=== PATIENT | male | born 1955 | race Caucasian/White ===

== ENCOUNTER 2017-04-18 19:07 | Inpatient (IN) | payer BC, OTHER ==
[~2017-04-18] VITALS: Ht 175.3 cm; Wt 97.5 kg
--- NOTE | ~2017-04-18 | HC ---
[facility] [place] [address] CONSULTATION Name: ABI BETANCOURT Room #: 312-P [facility] IN M.R.#: [id number] Admission: 04/18/17 Attend Phys: Jorge Luis Fong MD Discharge: 04/20/17 Date of : 55 Report #: [id number] THIS REPORT FOR: //name// CC: Joseluis Freitas MD REASON FOR CONSULTATION: The patient is a 61-year-old male with enlarged spleen and abnormal liver function studies. HISTORY OF PRESENT ILLNESS: History is obtained from the patient Unfortunately, he cannot give a lot of detail. In the computer system, there is a bone marrow done in 2007, which was a dry tap, but at that time elevated bilirubin was the one indicates for the bone marrow. Dr. Freitas left a brief note on the chart indicating that this patient is well known to her from outpatient followup. He has a history of thrombocytopenic purpura, vitiligo, hypothyroidism, and iron overload with negative HFE gene testing. 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 Platelets have remained over 30,000 in the past, previous bone marrow biopsy was without dysplasia and aspirin has been held as platelets have been under 50,000, platelets are now 20,000. She indicates that if he has lower drop in platelets, he may require treatment. The patient reports to me that he had developed abdominal pain which was diffuse over his abdomen yesterday, was not severe, but the pain persisted throughout the day and it was not any better in the evening, he presented to the emergency room. Upon presentation, he had an abdominal CT, which revealed marked splenomegaly and some small bowel wall thickening in the second and third portion of the duodenum. Differentials include intramural hemorrhage, edema or infiltration: Major vessels of the hands are speaking against ischemia. Gallbladder was normal. Liver was normal per CT. He also had an ultrasound of the abdomen, which revealed splenomegaly. The common bile duct was 2 cm. The patient reports the abdominal pain has completely resolved. He is not having nausea, vomiting, hematemesis. Bowel habits have been regular. He reports he did have a colonoscopy several years ago and he reports it was negative. The patient also reports that he had previous workup at another facility including bone marrow biopsy, liver biopsy as well as multiple scans. I do not see those records at this point in time. There is no history of liver disease. There is no family history of liver [address] [address] CONSULTATION Name: ABI BETANCOURT Room #: 312-P [facility] IN M.R.#: [id number] Admission: 04/18/17 Attend Phys: Jorge Luis Fong MD Discharge: 04/20/17 Date of : 55 Report #: [id number] disease. He has never consumed much alcohol. He and his are for 31 years. He has never donated blood or received blood transfusion nor had tattoos. In addition, the patient reports that if he gets a flu or something, his urine will turn dark. Again, he is not having abdominal pain or biliary tract disease. PAST MEDICAL HISTORY: Diabetes, hypothyroidism and vitiligo which has been a long-term problem. ALLERGIES: PENICILLIN. MEDICATIONS: Usual home medicines are levothyroxine 100 mcg daily, meloxicam 15 mg daily, metformin 500 mg daily, Singulair 10 mg at bedtime, tamsulosin 0.8 mg daily. FAMILY HISTORY: No family history of colon cancer or family history of liver disease. SOCIAL HISTORY: He is . He quit smoking many years ago. He may be has 2 beers per week at [place]. He business. REVIEW OF SYSTEMS: GENERAL: No change in weight, fever, chills. CENTRAL NERVOUS SYSTEM: No focal weakness, numbness, loss of consciousness, seizures or stroke. ENT: No change in vision or hearing or sores in the mouth. PULMONARY: No cough, pneumonia or tuberculosis. CARDIOVASCULAR: No chest pain, chest tightness or palpitations. GASTROINTESTINAL: No nausea, vomiting, hematemesis. His abdominal pain has resolved. Bowel habits are regular. Colonoscopy in the past several years ago was negative per his report. GENITOURINARY: He takes Flomax. No history of kidney stones. MUSCULOSKELETAL: He has had chronic back pain and he gets epidural injections from time to time. SKIN: Vitiligo. ENDOCRINE: He has diabetes and hypothyroidism as well as vitiligo. PSYCHIATRIC: No depression, anxiety or bipolar illness. HEMATOLOGIC: Thrombocytopenia and enlarged spleen. No cancers. PHYSICAL EXAMINATION: GENERAL: The patient is a well-developed, well-nourished pleasant male who is awake, alert and oriented, in no acute distress. HEENT: Anicteric. Pupils equal and round. Oropharynx clear. NECK: Supple. [facility] [address] [place] [address] CONSULTATION Name: ABI BETANCOURT Room #: 312-P DIS IN MMavis.#: [id number] Admission: 04/18/17 Attend Phys: Jorge Luis Fong MD Discharge: 04/20/17 Date of : 55 Report #: [id number] CHEST: Clear. HEART: Regular rate and rhythm, normal S1, normal S2. ABDOMEN: Obese, normal bowel sounds, soft, nontender, without hepatomegaly. Spleen is palpable. RECTAL: Not done. EXTREMITIES: Without cyanosis, clubbing, edema. NEUROLOGIC: Oriented to person, place, and time, moves all 4 extremities well. SKIN: Extensive vitiligo. I do not see spider nevi. LABORATORY DATA: White count of 7, hemoglobin of 16.8, platelet count of 20,000. Electrolytes are normal. Blood sugar 176. Bilirubin is 3 with direct of 0.4. AST 75, ALT of 96, alkaline phosphatase of 226, albumin of 3.0. ASSESSMENT: 1. Abnormal liver function studies. There is a mention of history of fatty over disease. He has had a liver biopsy done and I do not have those results. He reports dark urine with flu like illness raising the possibility of Gilbert's. Hemolysis may be a factor as well. 2. Splenomegaly with thrombocytopenic purpura, question idiopathic thrombocytopenic purpura. 3. Diabetes. 4. Vitiligo. 5. Hypothyroidism. 6. Abdominal pain, resolved. 7. Abnormal CT, spleen and duodenum. PLAN: 1. We would like to see previous records with regards to his liver biopsy. 2. No intervention planned at this time due to his low platelets and resolution of abdominal pain. 3. Consider upper endoscopy to evaluate the duodenum. The thickening may be due to edema. In view of his low platelets, hemorrhage may be another consideration, infiltrative process is possible, but probably less likely. <ELECTRONICALLY SIGNED> By: Joby Naylor MD 04/22/17 1523 1639 2049 Joby Naylor MD /nt
--- NOTE | ~2017-04-18 | EKG ---
[address] [place] [address] ELECTROCARDIOGRAM REPORT Name: ABI BETANCOURT Room #: 312-P ADM IN M.R.#: [id number] Admission: 04/18/17 Attend Phys: Jorge Luis Fong MD Discharge: Date of : 55 Report #: [id number] THIS REPORT FOR: //name// [facility] ED Test Date: 2017-04-18 Test Time: 22:05:14 Pat Name: ABI BETANCOURT Department: Room: [facility] Gender: M Materials Tech: La BECERRA : 1955 Requested By: Maikol Prabhakar Order Number: [id number] MD: Aaron Marlow Measurements Intervals [place] Rate: 84 P: 30 CO: 171 QRS: 9 QRSD: 99 T: 30 QT: 367 QTc: 434 Interpretive Statements Sinus rhythm Baseline wander in lead(s) I,II,aVR No previous ECG available for comparison Electronically Signed On 04-19-2017 10:52:01 CDT by Aaron Marlow [email or web address] <ELECTRONICALLY SIGNED> By: Aaron Marlow MD, [facility] 04/19/17 1052 04 04 Aaron Marlow MD, [facility] /EPI
[2017-04-18 19:18] VITALS: BP 140/90
[2017-04-18] MEDS ORDERED: LEVOTHYROXINE 0.1 MG PO (19:23)
[2017-04-18] MEDS ORDERED: MOBIC15 MG PO (19:23)
[2017-04-18] MEDS ORDERED: GLUCOPHAGE XR500 MG PO (19:23)
[2017-04-18] MEDS ORDERED: FLOMAX0.4 MG PO (19:24)
[2017-04-18] MEDS ORDERED: SINGULAIR 10 MG10 M1 PO (19:24)
[2017-04-18 20:17] LABS: HEMOGLOBIN 16.8 gm/dL (14.0-18.0); MCHC 33.6 g/dL (28.0-37.0)
[2017-04-18 20:18] LABS: HEMATOCRIT 49.9 % (42.0-52.0); MCH 30.5 pg (26.0-34.0); MCV 90.9 fL (80.0-100.0); RBC 5.5 mil/uL (4.50-6.00); RDW 16.5 % (10.5-14.5)
[2017-04-18 20:20] LABS: ANION GAP 8 mmol/L (7-16); BUN 18 mg/dL (7-18); CHLORIDE 106 mmol/L (98-107); CO2 27 mmol/L (21-32); CREATININE 0.9 mg/dL (0.7-1.3); GLUCOSE 176 mg/dL (74-106); POTASSIUM 4.3 mmol/L (3.5-5.1); SODIUM 141 mmol/L (136-145)
[2017-04-18 20:29] LABS: ALKALINE PHOSPHATASE 226 U/L (46-116); SGOT 75 U/L (15-37); SGPT 96 U/L (30-65); TOTAL PROTEIN 6.8 g/dL (6.4-8.2); TROPONIN-I < 0.04 ng/mL (<0.04-0.07)
[2017-04-18 21:26] LABS: URINE BILIRUBIN NEGATIVE (Negative); URINE BLOOD NEGATIVE (Negative); URINE COLOR YELLOW; URINE GLUCOSE-RANDOM* TRACE (Negative); URINE KETONES NEGATIVE (Negative); URINE LEUKOCYTES-REFLEX NEGATIVE (Negative); URINE PROTEIN (DIPSTICK) 1+ (Negative); URINE SPECIFIC GRAVITY 1.015 (1.003-1.035)
[2017-04-18 21:37] LABS: SQUAMOUS 0-3 Few /LPF (0-3)
[2017-04-18 21:38] LABS: HYALINE CASTS 0-3 Few /LPF (None Seen); URINE WBC-REFLEX 0-5 Rare /HPF (0-5)
[2017-04-18 21:39] LABS: CRYSTALS None Seen /LPF (None Seen); URINE RBC 0-2 Rare /HPF (0-2)
[2017-04-19 00:09] LABS: DIRECT BILIRUBIN 0.4 mg/dL (<0.1-0.3)
[2017-04-19 01:01] VITALS: BP 128/93
[2017-04-19 03:25] VITALS: BP 146/76
[2017-04-19 08:00] VITALS: BP 125/58
[2017-04-19 16:00] VITALS: BP 130/98
[2017-04-19 16:51] LABS: ABSOLUTE RETIC COUNT 0.0861 10^6/uL; OBSERVED RETIC COUNT 1.51 % (0.6-2.6)
[2017-04-19 18:52] VITALS: BP 111/44
[2017-04-20 03:49] VITALS: BP 155/77
[2017-04-20 08:25] VITALS: BP 145/77
[2017-04-20 08:48] LABS: HEMATOCRIT 42.8 % (42.0-52.0); MCH 30.7 pg (26.0-34.0); MCV 90.4 fL (80.0-100.0); RBC 4.73 mil/uL (4.50-6.00); RDW 16.4 % (10.5-14.5); WBC 3.9 thou/uL (4.0-11.0)
[2017-04-20 08:49] LABS: HEMOGLOBIN 14.5 gm/dL (14.0-18.0)
[2017-04-20 08:50] LABS: MANUAL DIFF YES
[2017-04-20 09:13] LABS: ABSOLUTE NEUTROPHILS 3.2 thou/uL (1.4-8.2); TOTAL CELL COUNT 100
[2017-04-20 09:14] LABS: PLATELET ESTIMATE MARKEDLY DECREASED; POLYCHROMASIA SLIGHT
[2017-04-20 09:17] LABS: PLATELET COUNT 18 thou/uL (150-400)
[2017-04-20 09:27] VITALS: BP 145/77
== END 2017-04-20 09:48 | disposition home or self-care (01) | DRG 815 ==
LOC: ER 19:07 → 3N 22:33 → EROBS 22:33 → 3N 04-19 01:03
PROVIDERS: Emergency Medicine; Internal Medicine Hematology & Oncology; Specialist
DX: R16.1 Splenomegaly, not elsewhere classified (principal); J98.11 Atelectasis; R10.9 Unspecified abdominal pain; D69.6 Thrombocytopenia, unspecified; E03.9 Hypothyroidism, unspecified; K76.0 Fatty (change of) liver, not elsewhere classified; M54.9 Dorsalgia, unspecified; R79.89 Other specified abnormal findings of blood chemistry; G89.29 Other chronic pain; E11.9 Type 2 diabetes mellitus without complications; J30.2 Other seasonal allergic rhinitis; E05.90 Thyrotoxicosis, unspecified without thyrotoxic crisis or storm; Z79.899 Other long term (current) drug therapy; Z88.0 Allergy status to penicillin; Z87.891 Personal history of nicotine dependence
CPT/HCPCS: 10094

== ENCOUNTER 2017-04-24 19:59 | Inpatient (IN) | payer BC, OTHER ==
[~2017-04-24] VITALS: Ht 175.3 cm; Wt 101.6 kg
--- NOTE | ~2017-04-24 | DSS ---
[facility] [place] [address] SHORT STAY SUMMARY Name: ABI BETANCOURT Room #: 245-P [facility] IN M.R.#: [id number] Admission: 04/24/17 Attend Phys: Jorge Luis Fong MD Discharge: 04/26/17 Date of : 55 Report #: [id number] THIS REPORT FOR: //name// CC: Carly Freitas DATE OF SERVICE: 04/26/2017 The patient is a 61-year-old male who was admitted on the late evening of with mental status changes. His reports that he was somewhat fatigued during the day. He said he did not feel well, so laid down and as the evening progressed, he became more disoriented. He had been hospitalized recently and then discharged and did well at home for a separate problem. He had no prior mental status problems. He does have a history of thrombocytopenia, which has been followed by Dr. Katerina Freitas at [facility]. They had given him IV steroids recently for that. He had recent platelet count that was below 50. He was admitted and initially evaluated for possible stroke or bleed. CT head was negative for stroke or bleed. CT angiogram was also negative for acute infarct. The patient was admitted overnight. Consultation with Neurology was undertaken. An MRI was performed the following morning, which was also negative for stroke. At that time, Neurology was concerned that steroids had caused this altered mental status and encephalopathy. We also consulted Infectious Disease ____ underlying infectious source. A CT of the abdomen was done which did show some cirrhosis, which apparently has been present in the past. The patient had been worked up by ____ had ultrasound over a year ago. The reports there was a biopsy of the liver done, although I do not have a copy of that. The patient had not been undergoing a treatment for that and had not had any prior encephalopathy or ammonia level issues before. In response to that abnormal scan, ammonia level was done which was elevated at 67. At that time, we initiated plans for treatment with lactulose. The patient remained markedly confused. He is able to respond to questions, but he is little agitated and confused. He was given Haldol primarily for agitation. He did receive ____ 2 doses of Ativan due to his severe agitation prior to getting his MRI to see if he could calm down for that. His mental status did not really change subsequent to that. The family had requested transfer to [facility] for further evaluation of his encephalopathy and cirrhosis. The patient did have a total bilirubin of 2.7. His white count was slightly low at 3.7. His hemoglobin was stable at 13.7. His platelet count was 26,000. His INR and PT were within range. PT was 17.3. Sodium 149, potassium 4.8. Remainder of the electrolytes within normal range. Neurological status essentially did not change during his stay. Arrangements were made for transfer to [facility] for further evaluation of his encephalopathy and cirrhosis and elevated ammonia level. The patient will be transferred under the care of the hospitalist at [facility]. He will be transferred to the medical surgical floor. He had been [address] [address] SHORT STAY SUMMARY Name: ABI BETANCOURT Room #: 245-P DIS IN M.R.#: [id number] Admission: 04/24/17 Attend Phys: Jorge Luis Fong MD Discharge: 04/26/17 Date of : 55 Report #: [id number] in the ICU in our facility ____ agitation in the beginning stage of this hospitalization to make sure that there was not any danger to self and no progression of the disease. He does remain medically stable at this time for transfer and I do not believe he has been intensive care at this time. I have discussed with the family and they are in agreement with the transfer. The patient will be transferred via ambulance to [facility] this evening. By: 1907 54 Jorge Luis Fong MD /nt
--- NOTE | ~2017-04-24 | HC ---
[facility] [place] [address] CONSULTATION Name: ABI BETANCOURT Room #: 245-P ADM IN M.R.#: [id number] Admission: 04/24/17 Attend Phys: Jorge Luis Fong MD Discharge: Date of : 55 Report #: [id number] THIS REPORT FOR: //name// CC: Carly Freitas REASON FOR CONSULTATION: I was asked to evaluate concerning encephalopathy. HISTORY OF PRESENT ILLNESS: The patient is a 61-year-old who had been followed by GI service and hematology due to profound thrombocytopenia. Unclear if this was due to sequestration or ITP. Treated last week with dexamethasone. Yesterday noted confusional state, some dizziness sensation, no fever, chills, or sweats. No witnessed seizure activity. He has had no cough, sputum, nausea, vomiting, diarrhea, dysuria, or frequency. Due to his encephalopathy, he was admitted to the emergency room. Hemodynamically, he has been stable. He has episodes of confusion trying to get out of bed and then will become more lethargic. There has been no travel. No head injury is noted. He has been on no recent antibiotics. Question is whether he has got underlying cirrhosis with splenomegaly and thrombocytopenia on this regard versus ITP. He has had no previous acute renal failure or evidence of encephalopathy prior to this. During his last hospitalization, he did have some small-bowel wall thickening in the second and third portion of the duodenum, but this has subsequently resolved. PAST MEDICAL HISTORY: Diabetes, hypothyroidism, and vitiligo. ALLERGIES: To PENICILLIN. MEDICATIONS: Levothyroxine, Meloxicam, metformin, Singulair, tamsulosin, and dexamethasone. FAMILY HISTORY: Noncontributory. SOCIAL HISTORY: , past smoker, few beers per week. No HIV risk factors noted. REVIEW OF SYSTEMS: Noted above. PHYSICAL EXAMINATION: VITAL SIGNS: Afebrile, hemodynamically stable. GENERAL: He was lethargic, but would answer yes or no type questions. He was trying to lay on his left side, but would roll back over on his back. NECK: Supple. EYES: Unremarkable. MOUTH: Unremarkable. SKIN: Few petechiae. [facility] [address] [place] [address] CONSULTATION Name: ABI BETANCOURT Room #: 245-P [facility] IN .R.#: [id number] Admission: 04/24/17 Attend Phys: Jorge Luis Fong MD Discharge: Date of : 55 Report #: [id number] LYMPH: Unremarkable. CHEST: Clear. HEART: Regular with no appreciable murmur, gallop, or rub. ABDOMEN: Soft, nontender, no hepatosplenomegaly or mass. EXTREMITIES: Unremarkable. NEUROLOGIC: Nonfocal. LABORATORY STUDIES: Sodium 137, potassium 5.3, bicarbonate 24, and creatinine 1.2. Drug screen negative. Bilirubin 3, AST 75, and alk phos 226 during his previous admission. Liver function tests have not been repeated. Hemoglobin 16, WBCs 9.9, and platelet count was 27,000. Urinalysis, moderate rbc's, otherwise remarkable for 2+ glucose and 2+ blood. CT scan of the brain including CT angiogram, normal perfusion. Chest x-ray, basilar atelectasis. IMPRESSION: A 61-year-old with altered mental status and encephalopathy, most likely toxic metabolic. He still cannot rule out infection considering his steroids. Ischemia seems less likely with his previous scans being negative, although we will await his MRI scan. He has splenomegaly and significant thrombocytopenia. As of yet indeterminate whether this is sequestration or idiopathic thrombocytopenic purpura. Does not have renal failure to suggest thrombotic thrombocytopenic purpura. RECOMMENDATION: I did review his previous ultrasound in 2007 and he had splenomegaly at that time. We will plan to image his brain with MRI scan. Try to increase his platelet count and push for CSF examination. In the meantime, we will begin empiric antimicrobial therapy. He will be moved to the intensive care unit. We would check his liver function test as well as HIV testing. We will need further outpatient records to determine any further workup. I have discussed with nursing staff, neurology and the patient's family. <ELECTRONICALLY SIGNED> By: Maikol Yao MD 04/25/17 1212 1029 1203 Maikol Yao MD /nt
--- NOTE | ~2017-04-24 | EEG ---
[facility] [place] [address] ELECTROENCEPHALOGRAM Name: ABI BETANCOURT Room #: 245-P [facility] IN M.R.#: [id number] Admission: 04/24/17 Attend Phys: Jorge Luis Fong MD Discharge: 04/26/17 Date of : 55 Report #: [id number] THIS REPORT FOR: //name// CC: Carly Freitas DATE OF EE04/25/2017 This patient is being evaluated for altered mental status. EEG was done by placing the electrodes by standard 10-20 system of electrode placement. Both referential and sequential montages were used for recording. This patient's EEG is very disorganized and poorly formed. Background activity in this patient's EEG appeared to be about 5 Hz and 15 microvolts. It is difficult to tell this background for sure. EEG is slow and is very difficult to tell when the patient is awake or asleep. Photic stimulation is unremarkable. IMPRESSION: This is an abnormal EEG because it is disorganized and poorly formed. That is a nonspecific abnormality, which can occur with encephalopathy, effect of psychotropic medication, dementia, etc. Clinical correlation and further workup is recommended in this patient to evaluate this patient for this abnormal EEG. Thank you very much for this referral. <ELECTRONICALLY SIGNED> By: Johnnie Daniels MD 04/27/17 1941 1910 1924 MD toby Lanier
--- NOTE | ~2017-04-24 | EKG ---
[address] [address] ELECTROCARDIOGRAM REPORT Name: SERAFINABI Room #: 245-P ADM IN M.R.#: [id number] Admission: 04/24/17 Attend Phys: Jorge Luis Fong MD Discharge: Date of : 55 Report #: [id number] THIS REPORT FOR: //name// [facility] ED Test Date: 2017-04-24 Test Time: 19:59:41 Pat Name: ABI BETANCOURT Department: Room: [facility] Gender: M Time Study Analyst: [id number] : 1955 Requested By: Nellie Lombardi Order Number: [id number] MD: Dany Page Measurements Intervals [place] Rate: 117 P: 50 [place]: 137 QRS: 44 QRSD: 98 T: 21 QT: 337 QTc: 471 Interpretive Statements Sinus tachycardia Compared to ECG 04/18/2017 22:05:14 Sinus rhythm no longer present Electronically Signed On 04-25-2017 16:43:11 CDT by Dany Page [email or web address] <ELECTRONICALLY SIGNED> By: Dany Page MD 08/1642 58 58 Dany Page MD /VILLA
[~2017-04-24 19:59] MED LIST: FLOMAX0.4 MG PO; GLUCOPHAGE XR500 MG PO; LEVOTHYROXINE 0.1 MG PO; MOBIC15 MG PO; SINGULAIR 10 MG10 M1 PO
[2017-04-24 20:01] VITALS: BP 159/95
[2017-04-24 20:19] LABS: HEMOGLOBIN 16.1 gm/dL (14.0-18.0); WBC 9.9 thou/uL (4.0-11.0)
[2017-04-24 20:21] LABS: HEMATOCRIT 46.2 % (42.0-52.0); MCH 31.3 pg (26.0-34.0); MCHC 34.9 g/dL (28.0-37.0); MCV 89.6 fL (80.0-100.0); RBC 5.15 mil/uL (4.50-6.00); RDW 16.4 % (10.5-14.5)
[2017-04-24 20:23] LABS: MANUAL DIFF YES
[2017-04-24 20:24] LABS: CALCIUM 8.2 mg/dL (8.5-10.1); CREATININE 1.2 mg/dL (0.7-1.3); POTASSIUM 5.3 mmol/L (3.5-5.1)
[2017-04-24 20:34] LABS: APTT 27.8 Seconds (24.5-32.8); INR 1.7; PROTIME 17.2 Seconds (9.3-11.4)
[2017-04-24 20:53] LABS: ABSOLUTE NEUTROPHILS 8.6 thou/uL (1.4-8.2); TOTAL CELL COUNT 100
[2017-04-24 20:54] LABS: ANISOCYTOSIS 1+; PLATELET COUNT 27 thou/uL (150-400)
[2017-04-24 20:55] LABS: LARGE PLATELETS RARE
[2017-04-24 22:26] VITALS: BP 161/96
[2017-04-24] MEDS ORDERED: LISINOPRIL20 MG PO (23:35)
[2017-04-24] MEDS ORDERED: CENTRUM SILVER1 EAC4 PO (23:36)
[2017-04-24] MEDS ORDERED: CO Q-10100 MG PO (23:36)
[2017-04-24] MEDS ORDERED: BAYER CHEWABLE81 MG PO (23:39)
[2017-04-25] VITALS (19 sets, daily range): BP systolic 94–190; BP diastolic 51–106
[2017-04-25 01:32] LABS: URINE BILIRUBIN NEGATIVE (Negative); URINE BLOOD 2+ (Negative); URINE COLOR YELLOW; URINE GLUCOSE-RANDOM* 2+ (Negative); URINE KETONES NEGATIVE (Negative); URINE LEUKOCYTES-REFLEX NEGATIVE (Negative); URINE PROTEIN (DIPSTICK) NEGATIVE (Negative); URINE UROBILINOGEN 0.2 E.U./dl (0.2-1.0)
[2017-04-25 01:40] LABS: AMP/METHAMP Negative (Negative); BARBITURATES Negative (Negative); BENZODIAZEPINES Negative (Negative); COCAINE Negative (Negative); METHADONE Negative (Negative); OPIATES Negative (Negative); PCP Negative (Negative); THC Negative (Negative)
[2017-04-25 01:46] LABS: SQUAMOUS None Seen /LPF (0-3)
[2017-04-25 01:47] LABS: CASTS None Seen /LPF (None Seen); CRYSTALS None Seen /LPF (None Seen); URINE WBC-REFLEX None Seen /HPF (0-5)
[2017-04-25 20:23] LABS: CALCIUM 7.9 mg/dL (8.5-10.1); CREATININE 1.2 mg/dL (0.7-1.3); MAGNESIUM 2.8 mg/dL (1.8-2.4); POTASSIUM 4.5 mmol/L (3.5-5.1)
[2017-04-26] VITALS (23 sets, daily range): BP systolic 127–178; BP diastolic 72–101
[2017-04-26 01:06] LABS: HIV ANTIBODY Non Reactive (Non Reactive)
[2017-04-26 06:35] LABS: RDW 16.8 % (10.5-14.5); WBC 3.7 thou/uL (4.0-11.0)
[2017-04-26 06:37] LABS: HEMATOCRIT 40.4 % (42.0-52.0); MCH 30.9 pg (26.0-34.0); MCHC 33.9 g/dL (28.0-37.0); MCV 91.2 fL (80.0-100.0); PLATELET COUNT 26 thou/uL (150-400); RBC 4.43 mil/uL (4.50-6.00)
[2017-04-26 06:41] LABS: HEMOGLOBIN 13.7 gm/dL (14.0-18.0); MANUAL DIFF YES
[2017-04-26 07:00] LABS: ALBUMIN 2.2 g/dL (3.4-5.0); CALCIUM 7.6 mg/dL (8.5-10.1); CREATININE 1.1 mg/dL (0.7-1.3); POTASSIUM 4.8 mmol/L (3.5-5.1); TOTAL BILIRUBIN 2.7 mg/dL (<0.1-1.0); TOTAL PROTEIN 5.7 g/dL (6.4-8.2)
[2017-04-26 07:22] LABS: TOTAL CELL COUNT 100
[2017-04-26 07:23] LABS: ABSOLUTE NEUTROPHILS 3.4 thou/uL (1.4-8.2)
[2017-04-26 07:24] LABS: ANISOCYTOSIS 1+
[2017-04-26 07:25] LABS: POLYCHROMASIA 1+
[2017-04-26 11:28] LABS: INR 1.7
[2017-04-26 11:33] LABS: PROTIME 17.3 Seconds (9.3-11.4)
[2017-04-26 12:42] LABS: URINE BILIRUBIN NEGATIVE (Negative); URINE BLOOD 3+ (Negative); URINE COLOR YELLOW; URINE GLUCOSE-RANDOM* 1+ (Negative); URINE KETONES NEGATIVE (Negative); URINE LEUKOCYTES-REFLEX NEGATIVE (Negative); URINE PROTEIN (DIPSTICK) NEGATIVE (Negative); URINE UROBILINOGEN 0.2 E.U./dl (0.2-1.0)
[2017-04-26 12:51] LABS: CASTS None Seen /LPF (None Seen); CRYSTALS None Seen /LPF (None Seen); SQUAMOUS None Seen /LPF (0-3); URINE RBC >20 Many /HPF (0-2)
[2017-04-26 12:52] LABS: URINE WBC-REFLEX 0-5 Rare /HPF (0-5)
== END 2017-04-26 21:00 | disposition short-term general hospital (02) | DRG 813 ==
LOC: ER 19:59 → ICU 21:12 → EROBS 21:12 → 2N 22:22 → ICU 04-25 10:55
PROVIDERS: Emergency Medicine; Family Medicine; Psychiatry & Neurology Neurology; Specialist
PROC: 30233R1 Transfusion of Nonautologous Platelets into Peripheral Vein, Percutaneous Approach (ICD-10-PCS; principal; 2017-04-21)
DX: D69.6 Thrombocytopenia, unspecified (principal); G93.40 Encephalopathy, unspecified; G89.29 Other chronic pain; M54.9 Dorsalgia, unspecified; E11.9 Type 2 diabetes mellitus without complications; Z88.0 Allergy status to penicillin; Z79.4 Long term (current) use of insulin; Z79.899 Other long term (current) drug therapy; Z79.52 Long term (current) use of systemic steroids; Z23 Encounter for immunization
CPT/HCPCS: 10078; 10081; 62110; 62900